=== PATIENT | male | born 1995 | race Caucasian/White ===

== ENCOUNTER → 2020-01-26 | Outpatient (CLI) | payer OTHER ==
--- NOTE | 2020-01-26 12:58 | ECHOF ---
Referral Reason:R07.9 Chest Pain, R06.02 Shortness of Breath MEASUREMENTS -------- HEIGHT: 152.4 cm WEIGHT: 81.6 kg BP: 140/87 RVIDd: 3.6 cm (< 3.3) IVSd: 1.2 cm (0.6 - 1.1) LVIDd: 4.0 cm (3.9 - 5.3) LVPWd: 1.1 cm (0.6 - 1.1) IVSs: 1.6 cm LVIDs: 2.5 cm LVPWs: 1.6 cm LAESV Index (A-L): 21.02 ml/m Ao Diam: 3.8 cm (2.0 - 3.7) AV Cusp: 2.4 cm (1.5 - 2.6) MV EXCURSION: 20.937 mm (> 18.000) MV EF SLOPE: 59 mm/s (70 - 150) EPSS: 0.5 cm MV E George: 0.67 m/s MV DecT: 146 ms MV A George: 0.80 m/s MV E/A Ratio: 0.84 RAP: 5.00 mmHg RVSP: 32.72 mmHg FINDINGS -------- Sinus rhythm. This was a technically good study. The left ventricular size is normal. There is borderline concentric left ventricular hypertrophy. Overall left ventricular systolic function is normal with, an EF between 55 - 60 %. The diastolic filling pattern is normal for the age of the patient 6.78. The right ventricle is mildly enlarged. Normal LA size by volume 22+/-6 ml/m2. The right atrial size is normal. Possible PFO The aortic valve is trileaflet and appears structurally normal. There is no evidence of aortic regu rgitation. There is no evidence of aortic stenosis. No mitral regurgitation. Mild tricuspid regurgitation present. There is no evidence of pulmonary hypertension. The right v entricular systolic pressure, as measured by Doppler, is 32.72mmHg. There is no pulmonic regurgitation present. The aortic root size is normal. Normal inferior vena cava with normal inspiratory collapse consistent with estimated right atrial pre ssure of 5 mmHg. There is no pericardial effusion. CONCLUSIONS -------- 1. The left ventricular size is normal. 2. There is borderline concentric left ventricular hypertrophy. 3. Overall left ventricular systolic function is normal with, an EF between 55 - 60 %. 4. The diastolic filling pattern is normal for the age of the patient 6.78 5. The right ventricle is mildly enlarged. 6. Possible PFO 7. Mild tricuspid regurgitation present. PAYROLL EXAMINER: Sarah Ro RDCS
--- NOTE | 2020-01-28 22:51 | ECHOS ---
STRESS ECHOCARDIOGRAM INDICATIONS: Chest pain. MEDICATIONS: Amlodipine, Paxil. BASELINE HEART RATE: 77 BASELINE BLOOD PRESSURE: 141/87 mmHg MAXIMUM HEART RATE: 174 MAXIMUM BLOOD PRESSURE: 170/111 mmHg 85% MPHR: 167 100% MPHR: 196 METS: 11.9 MAXIMUM STAGE REACHED: IV TOTAL EXERCISE TIME: 10 minutes 15 seconds CLINICAL INFORMATION: Baseline EKG showed sinus mechanism. The patient exercised on the treadmill for a total of 10 minutes and 15 seconds and achieved 11.9 METS. Max heart rate was 174, which is about 88% of maximum predicted heart rate and maximum blood pressure was 170/111 mmHg. Clinically the patient did not have any symptoms of chest pain or chest discomfort and the EKG did not show any significant ST or T-wave abnormalities concerning for ischemia. Echocardiogram images from parasternal long axis view, parasternal short axis view, apical four chamber and apical two chambers were obtained as the baseline images, at the peak of the heart rate as well as on recovery. The echocardiogram images showed good augmentation in the left ventricular systolic function without any evidence of wall motion abnormalities concerning for ischemia. CONCLUSION: 1. Good exercise tolerance. 2. Normal EKG in response to exercise. 3. Normal echocardiogram in response to exercise. MMODL / IJN: [id number] /
== END | disposition home or self-care (01) ==
LOC: RADNMMAIN 09:12
PROVIDERS: ATTEND Family Medicine
DX: R07.9 Chest pain, unspecified (principal)
CPT/HCPCS: 93306; 93351

== ENCOUNTER → 2020-03-11 | Outpatient (CLI) | payer BC, OTHER ==
--- NOTE | 2020-03-11 22:52 | MR ---
EXAMINATION TYPE: MR brain wo/w con DATE OF EXAM: 03/11/2020 COMPARISON: NONE HISTORY: Headaches, Arnold Chiari, ms per patient. Paresthesias skin per order. TECHNIQUE: Multiplanar, multisequence images of the brain and brainstem is performed without and with IV contras t, utilizing 9 mL intravenous Gadavist gadolinium contrast is administered intravenously. Demyelinat ing disease protocol with additional Sagittal Flair sequence performed. FINDINGS: T2 Lesions Present : No Approximate Number of Lesions: n/a Locations Identified : n/a Size of Reference Lesion(s): n/a Enhancing Lesion(s) Present: n/a T1 Hypointense Lesion(s) Present: n/a Change from Prior: n/a Diffusion weighted images demonstrate no evidence of a recent infarct or other diffusion abnormality. There is no worrisome extra-axial fluid collection. The ventricular system and cisternal spaces ar e normal in size and appearance. The brain volume is age appropriate. Midline structures demonstrate normal morphology. The craniocervical junction appears within normal limits. Cerebellar tonsils project to level of foramen magnum without greater than 5 mm inferior desc ent. Post contrast images demonstrate no abnormal enhancement. The dural venous sinuses appear patent . Moderate mucosal thickening involving ethmoid sinuses bilaterally. Mild amount of mucosal thickenin g involving the inferior maxillary sinuses bilaterally. Globes are intact bilaterally. IMPRESSION: 1. No suspicious white matter changes. No suspicious enhancement. 2. No greater than 5 mm inferior cerebellar tonsillar descent to diagnose Chiari type I malformation on this study. 3. 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
--- NOTE | 2020-03-11 22:55 | MR ---
MRI CERVICAL SPINE: CLINICAL HISTORY: Cervical radiculopathy per order. Multiple sclerosis per patient. TECHNIQUE: Multiplanar, multisequence imaging of the cervical spine is performed without IV contrast. COMPARISON: None. FINDINGS: Coronal images show slight scoliotic curvature. Sagittal images of the cervical spine show the craniocervical junction to appear within normal limits. The cervical and upper thoracic spinal c ord is normal in course, caliber, and signal. Vertebral alignment is anatomic. The vertebral body h eights are normal. Mild to moderate disc space narrowing C4-C5 and C6-C7 level. The bone marrow signa l intensity is within normal limits. Axial images show the C2-C3 level to appear within normal limits. Axial images at C3-C4 level show uncovertebral facet degenerative changes causing uvyp-[id number] bi lateral neural foraminal narrowing. Axial images at C4-C5 level are felt within normal limits. Axial images at C5-C6 level shows central disc protrusion mildly effaces the anterior thecal sac, pat ent bilateral neural foramina. Axial images at C6-C7 level show focal central disc protrusion mildly effacing anterior thecal sac, p atent bilateral neural foramina. Axial images at C7-T1 level are within normal limits. IMPRESSION: Slight scoliotic curvature with mild multilevel degenerative changes as detailed above. N o suspicious spine cord lesions to suggest demyelinating disease involvement in the cervical spine.
== END | disposition home or self-care (01) ==
LOC: RADMRIMAIN 16:30
PROVIDERS: ATTEND Family Medicine
DX: M48.02 Spinal stenosis, cervical region (principal); M50.222 Other cervical disc displacement at C5-C6 level; M47.812 Spondylosis without myelopathy or radiculopathy, cervical region; M41.9 Scoliosis, unspecified
CPT/HCPCS: 70553; 72141; A9585

== ENCOUNTER → 2020-08-30 | Outpatient (CLI) | payer SELFPAY ==
[2020-08-30 16:37] LABS: HGB 17.9 gm/dL (13.0-17.5); MCH 31.6 pg (25.0-35.0); MCHC 35.1 g/dL (31.0-37.0); Mean Platelet Volume 8.7; Platelet Count 276 k/uL (150-450); RBC 5.66 m/uL (4.30-5.90); RDW 12.4 % (11.5-15.5); WBC 11.3 k/uL (3.8-10.6)
[2020-08-30 17:03] LABS: African American GFR (CKD) >90 (>60 ml/min/1.73 sqM); Anion Gap 12 mmol/L; Blood Urea Nitrogen 6 mg/dL (9-20); Carbon Dioxide 28 mmol/L (22-30); Chloride 100 mmol/L (98-107); Non-African American GFR(CKD) >90 (>60 ml/min/1.73 sqM); Potassium 4.3 mmol/L (3.5-5.1); Sodium 140 mmol/L (137-145)
== END | disposition home or self-care (01) ==
LOC: LABPAT 15:44
PROVIDERS: ATTEND Internal Medicine Interventional Cardiology
DX: Z01.812 Encounter for preprocedural laboratory examination (principal); Q21.1 Atrial septal defect
CPT/HCPCS: 36415; 80051; 82565; 84520; 85027

== ENCOUNTER 2020-09-04 09:29 | Day surgery (SDC) | payer BC, OTHER ==
[2020-08-30 12:15] VITALS: BMI 38.4
[~2020-09-04 09:29] MED LIST: ALPRAZolam 0.25 MG TAB PO PRN; ASPIRIN 325 MG TAB PO STA
[2020-09-04] MEDS ORDERED: SODIUM CHLORIDE 0.9% 1,000 ML IV ONE (09:53)
[2020-09-04 10:04] VITALS: RESP 16
[2020-09-04] MEDS ORDERED: MIDAZOLAM 2 MG/2 ML VIAL IV ONE ×2 (13:00→13:09)
[2020-09-04] MEDS ORDERED: LIDOCAINE 1% INJ 10MG/ML (20 ML MDV) SQ ONE (13:07)
--- NOTE | 2020-09-04 16:27 | PCN ---
PROCEDURE NOTE DATE OF SERVICE: 09/04/2020 PERFORMING PHYSICIAN: Patel Dorsey M.D. PROCEDURES PERFORMED: 1. Intracardiac echocardiogram imaging. 2. Contrast study using agitated saline. INDICATION: This is a 24-year-old gentleman who was experiencing symptoms of shortness of breath with exertion. He underwent transesophageal echocardiogram and that revealed possible atrial septal defect. Because of that, he was brought today to undergo ASD closure. The echo showed dilated right side of the heart. APPROACH: Right common femoral vein. COMPLICATIONS: None. LEVEL OF SEDATION: Moderate, with sedation length of 54 minutes. PROCEDURE DESCRIPTION: After obtaining informed consent, the patient was brought to the cardiac filling station laborer. The right common femoral vein was cannulated x2 using micropuncture technique under ultrasound guidance. The micropuncture wire passed easily. Then I placed two 8-Turkish sheaths. I did after that start anticoagulation with heparin, and the patient was given a total of 8000 units of heparin IV. Subsequently under x-ray guidance the intracardiac echocardiogram probe was advanced to the right atrium, where I did intracardiac echocardiogram imaging from multiple angulations. Attempts to cross the atrial septal defect using a multipurpose catheter and J-wire as well as Glidewire were unsuccessful. At that point, we had a doubt as to whether the patient really had an ASD or anomalous flow coming from possible anomalous drainage of one of the pulmonary veins. I did agitated saline multiple times, and that showed no evidence of any bubble crossing from the right to the left, nor from the left to the right with negative echo contrast. The procedure was completed at that point. POST-PROCEDURE MANAGEMENT: 1. Obtain a CTA or MRI to rule out anomalous drainage of one of the pulmonary veins. 2. Follow up with the patient. MMODL / IJN: [id number] /
[2020-09-04 21:05] VITALS: BP 143/87; PULSE 74; TEMP 97.3
[2020-09-05] MEDS ORDERED: CLOPIDOGREL 75 MG TAB PO SCH (09:00)
[2020-09-05] MEDS ORDERED: ASPIRIN 325 MG TAB PO SCH (09:00)
== END 2020-09-04 21:30 | disposition home or self-care (01) ==
LOC: CATHCVL 09:29 → 6NMEDSUR 16:01 → CATHCVL 21:30
PROVIDERS: ATTEND Internal Medicine Interventional Cardiology
DX: Q21.1 Atrial septal defect (principal); Z20.822 Contact with and (suspected) exposure to COVID-19; I10 Essential (primary) hypertension
CPT/HCPCS: 93580; 93662; 76937; 86900; 86901; 86850; 87635; C1769 ×5; C1894; C1759; J2250; J0690; J2001; J1644

== ENCOUNTER → 2020-12-10 | Outpatient (CLI) | payer BC, OTHER ==
--- NOTE | 2020-12-10 09:59 | CT ---
EXAMINATION TYPE: CT angio chest DATE OF EXAM: 12/10/2020 COMPARISON: None HISTORY: Atrial septal defect CT DLP: 487 mGycm CONTRAST: CTA thoracic aorta with 3-D reconstruction is performed and without and with IV Contrast, patient inj ected with 100 mL of Isovue 370. Contrast CTA of the thoracic aorta was performed from the lung apex through the upper abdomen. 3D re construction imaging obtained at a separate workstation. CT Chest: THORACIC AORTA: No evidence for thoracic aortic aneurysm. No significant atheromatous changes seen. There is no evidence for dissection or periaortic collection. LUNGS: The lungs are clear and free of infiltrate or atelectasis. No pulmonary nodule or mass is det ected. No pleural effusion or CT evidence of interstitial lung disease. MEDIASTINUM: No evidence for mediastinal hematoma. The heart is not enlarged. No evidence for med iastinal mass or adenopathy. HILAR STRUCTURES: No evidence for mass. No hilar adenopathy is appreciated. OTHER: No significant abnormality. IMPRESSION- No significant abnormality seen. Correlate with echocardiography for atrial septal defect not well vi sualized on CT.
== END | disposition home or self-care (01) ==
LOC: RADCTMAIN 08:38
PROVIDERS: ATTEND Nurse Practitioner Adult Health
DX: Q21.1 Atrial septal defect (principal)
CPT/HCPCS: 71275; Q9967